=== PATIENT | female | born 1955 | race Two or more races ===

== ENCOUNTER 2017-03-24 10:24 | Emergency (ER) | payer OTHER ==
[~2017-03-24] VITALS: Ht 160 cm; Wt 68.0 kg
[2017-03-24] MEDS ORDERED: IBUPROFEN600 MG ORAL (11:29)
[2017-03-24] MEDS ORDERED: AMOXICILLIN500 MG ORAL (11:29)
[2017-03-24 11:32] VITALS: BP 132/68
--- NOTE | 2017-03-31 18:57 | Emergency Room Report ---
History of Present Illness General Chief Complaint: Earache Source: Patient Present Illness HPI Patient is a 62 year old female who presented after gradual onset of right side sharp ear pain over the last two weeks. She denies any fever or hearing loss. She denies headache or vomiting. She denied vertigo sensation. Allergies: Coded Allergies: ASPIRIN (Verified Allergy, Unknown, 03/24/17) Patient History Past Medical History: see triage record Reviewed Nursing Documentation: PMH: Agreed, PSxH: Agreed Nursing Documentation-PMH Hx Cardiac Problems: No - HYPOTHYROIDISIM Review of Systems All Other Systems: negative except mentioned in HPI Physical Exam Vital Signs Date Time Temp Pulse Resp B/P (MAP) Pulse Ox O2 Delivery O2 Flow Rate FiO2 03/24/17 10:29 97.7 54 20 138/70 100 Room Air General Appearance: well appearing, no apparent distress, alert, GCS 15 Head: normocephalic, atraumatic ENT: hearing grossly normal, normal voice, other - fluid in ear canal Neck: full range of motion, supple Respiratory: no respiratory distress, speaking full sentences Musculoskeletal: no calf tenderness Neurologic: normal gait Psychiatric: mood/affect normal Skin: no rash Medical Decision Making Diagnostic Impression: Primary Impression: Acute otitis media with perforation Patient presented for earache. Differential diagnosis included but was nit limiteded to otitis media, swimmers ear, mastoiditis, among others. Patient has a benign exam and does nit appear to require laboratory testing at this time. Patient appears to have an otitis media with perforation. Patient was advised to avoid use of eardrops. She was advised to follow up with her primary care physician for ENT referral. Patient was advised to return for any worsening or any other concerns. Last Vital Signs Date Time Temp Pulse Resp B/P (MAP) Pulse Ox O2 Delivery O2 Flow Rate FiO2 03/24/17 11:32 97.7 76 18 132/68 100 Room Air Disposition: HOME, SELF-CARE Condition: Stable Scripts Ibuprofen* (MOTRIN*) 600 Mg Tablet 600 MG ORAL Q8H Y for For Pain, #30 TAB 0 Refills Prov: Suraj Maldonado 03/24/17 Amoxicillin* (AMOXIL*) 500 Mg Capsule 500 MG ORAL THREE TIMES A DAY, #21 CAP Prov: Suraj Maldonado 03/24/17 Referrals: [facility],REFERRIN (PCP) Patient Instructions: Otitis Media, Adult, [id number] Suraj Maldonado Mar 31, 2017 18:57
== END 2017-03-24 11:45 | disposition home or self-care (01) ==
LOC: EMR 11:35
DX: H66.91 Otitis media, unspecified, right ear (principal); H92.01 Otalgia, right ear; E78.5 Hyperlipidemia, unspecified
CPT/HCPCS: 99283